=== PATIENT | male | born 1985 | race Caucasian/White ===

== ENCOUNTER 2019-03-14 15:15 | Emergency (ER) | payer SELFPAY ==
[~2019-03-14] VITALS: Ht 172.7 cm; Wt 77.1 kg
--- NOTE | 2019-03-14 15:30 | NUR ---
ERMD at bedside for MSE
[2019-03-14] MEDS ORDERED: IV NORMAL SALINE 1000 ML BAG IV ONE (15:45)
[2019-03-14] MEDS ORDERED: PROCHLORPERAZINE EDISYLATE 10 MG/2 ML VIAL IV ONE (15:45)
[2019-03-14] MEDS ORDERED: PROCHLORPERAZINE EDISYLATE 10 MG/2 ML VIAL ONE (16:03)
[2019-03-14 16:07] LABS: BASOPHILS % (AUTO) 0.6 % (0.0-2.0); EOSINOPHILS # (AUTO) 0.1 K/uL (0.0-0.7); EOSINOPHILS % (AUTO) 0.9 % (0.0-7.0); HEMATOCRIT 44.1 % (36.7-47.1); HEMOGLOBIN 15.1 g/dL (12.5-16.3); LYMPHOCYTES # (AUTO) 1.5 K/uL (20.0-40.0); LYMPHOCYTES % (AUTO) 21.9 % (20.5-51.5); MEAN CORPUSCULAR HEMOGLOBIN 29.8 uug (23.8-33.4); MEAN CORPUSCULAR HGB CONC 34 g/dL (32.5-36.3); MEAN CORPUSCULAR VOLUME 87.3 fL (73.0-96.2); MONOCYTES # (AUTO) 0.7 K/uL (2.0-10.0); MONOCYTES % (AUTO) 10.9 % (0.0-11.0); NEUTROPHILS # (AUTO) 4.4 K/uL (1.8-8.9); NEUTROPHILS % (AUTO) 65.7 % (38.5-71.5); PLATELET COUNT (AUTO) 307 K/uL (152-348); RED BLOOD CELL COUNT(AUTO) 5.05 MIL/uL (4.06-5.63); WHITE BLOOD COUNT (AUTO) 6.7 K/uL (3.6-10.2)
[2019-03-14 16:23] LABS: CREATININE 0.9 mg/dL (0.6-1.3); POTASSIUM 3.4 mmol/L (3.5-5.1)
[2019-03-14 16:27] LABS: BILIRUBIN,DIRECT 0.2 mg/dL (0.0-0.2); BILIRUBIN,TOTAL 0.9 mg/dL (0.2-1.0); TOTAL PROTEIN, SERUM 8.1 g/dL (6.4-8.2)
--- NOTE | 2019-03-14 17:27 | NUR ---
Patient discharged to home in stable conditon. Written and verbal after care instructions given. Patient verbalizes understanding of instructions.PT SAYS FEELS BETTER. PT WALKS IN STEADY GAIT.DENE[place] N/V OR DIZZINESS AT THIS POINT
[2019-03-14 17:29] VITALS: BP 107/71
== END 2019-03-14 17:29 | disposition home or self-care (01) ==
LOC: ER 15:15
DX: R11.2 Nausea with vomiting, unspecified (principal); R07.89 Other chest pain; R42 Dizziness and giddiness
CPT/HCPCS: 36415; 71045; 80048; 80076; 83690; 84484; 85025; 93005; 96360; 96372; 99284; J0780; 70030-TC; A4663; J7030